=== PATIENT | male | born 1980 | race Two or more races ===

== ENCOUNTER 2021-01-18 19:25 | Emergency (ER) | payer MEDICAID, OTHER ==
[~2021-01-18] VITALS: Ht 177.8 cm; Wt 90.7 kg
[2021-01-19] VITALS: BP 126/79
== END 2021-01-19 01:49 | disposition home or self-care (01) ==
LOC: ER 19:27
DX: T15.01XA Foreign body in cornea, right eye, initial encounter (principal); X58.XXXA Exposure to other specified factors, initial encounter; Y93.89 Activity, other specified; Y92.89 Other specified places as the place of occurrence of the external cause; Y99.8 Other external cause status
CPT/HCPCS: 65205

== ENCOUNTER 2021-06-17 20:49 | Emergency (ER) | payer MEDICAID ==
[~2021-06-17] VITALS: Ht 177.8 cm; Wt 90.7 kg
[2021-06-17 22:21] VITALS: BP 128/86
[2021-06-17] MEDS ORDERED: LIDOCAINE W/ EPINEPHRINE 2% INJ 20ML VIAL IJ ONE (22:30)
[2021-06-17] MEDS ORDERED: LIDOCAINE 1% HCL (LOCAL ANESTH.) INJ 20ML MDV ID ONE ×2 (22:45→23:45)
[2021-06-17] MEDS ORDERED: CEPH500C PO (22:47)
[2021-06-17] MEDS ORDERED: LIDOCAINE 2%HCL (LOCAL ANESTH.) INJ 10ml MDV ONE (22:51)
[2021-06-17] MEDS ORDERED: LIDOCAINE 1%HCL (LOCAL ANESTH) 10 ML MDV ONE (22:53)
[2021-06-17] MEDS ORDERED: NEOMYCIN-BACITRACIN-POLYM UNITDOSE PKG TOP OINT TOP ONE (23:30)
== END 2021-06-17 23:53 | disposition home or self-care (01) ==
LOC: ER 20:49
DX: S51.012A Laceration without foreign body of left elbow, initial encounter (principal); W26.8XXA Contact with other sharp object(s), not elsewhere classified, initial encounter; Y93.89 Activity, other specified; Y92.89 Other specified places as the place of occurrence of the external cause; Y99.8 Other external cause status
CPT/HCPCS: 12002; 73090; 99283; J2001